=== PATIENT | female | born 1945 | race Caucasian/White ===

== ENCOUNTER 2020-01-18 09:51 | Inpatient (IN) ==
[2020-01-18 10:06] VITALS: BMI 22.8
--- NOTE | 2020-01-18 10:36 | ED.ABDFE ---
HPI Time Seen Time Seen by Provider: 01/18/20 10:34 PCP Primary Care Physician: IVA PAZ HPI Comment HPI Comment: PATIENT IS 74YR OLD FEMALE IN ER WITH ABDOMINAL PAIN. PATIENT SAID YESTERDAY FOR 2 HOURS SHE EXPERIENCE UPPER ABDOMINAL PAIN. AGAIN PAIN STARTED IN LOWER ABDOMEN LAST NIGHT. PAIN HAVE CONTINUE TO GET WORSE SINCE. PAIN IS SHARP 9/10 ASSOCIATED WITH NAUSEA. VOMITED TIMES ONE THIS AM. PAIN RADIATES TO THE BACK. LYING STILL HELP PAIN AND MOVEMENT MAKES PAIN WORSE. HAVE TAKEN TYLENOL 500MG AND COLASE. DENIES PREVIOUS SIMILAR PAIN. DENIES CONTACT WITH COVID 19 PATIENT. NO FEVER OR DYSURIA. LAST BM YESTERDAY. DID Complaint Doctors Chief Complaint Comments: ABDOMINAL PAIN TIMES ONE DAY. Chief Complaint:: PATIENT STATES SHE STARTED HAVING MAJOR PAIN IN THE UPPER MID ABDOMEN YESTERDAY AROUND 5PM. PT STATES THE PAIN LAST ABOUT 2 HOURS. PATIENT STATES THAT LAST NIGHT SHE STARTED HURTING IN THE LOWER PART OF HER ABDOMEN. PATIENT STATES SHE FEELS LIKE SHE NEEDS TO HAVE A BM BUT IS UNABLE TO. STATES SHE HAS NO GAS. PATIENT STATES HER LAST BM WAS EARLY YESTERDAY AND IT WAS A SMALL AMOUNT AND LOOSER THAN NORMAL. PATIENT STATES SHE HAS VOMITED X1 THIS AM. Self Treatment fo Chief Complaint: TYLENOL 500MG X1 COLACE THIS AM COVID-19 Coronavirus risk:travel/contact w/high risk person: No Has patient experienced Coronavirus symptoms: No Reviewed Nurses Notes Review: Yes Source History Provided: Patient Mode of arrival Mode of Arrival: Ambulatory Timing Onset of Chief Complaint: 01/17/20 Duration Since Onset: Constant Duration: Hours Severity Severity: Moderate PMH PMH Past Medical History: Yes Past Medical History: Dyslipidemia, Hypertension and Hypothyroidism Past Surgical History: Yes Surgical History: Hysterectomy Past Surgical History Comment: SKIN CA REMOVED Family History History of Family Medical Conditions: Yes Family Medical History: Cancer, Coronary Artery Disease and Sudden Cardiac Social History Does patient currently use any type of tobacco product: No Have you used tobacco products in the last 12 months: No Type of Tobacco Use: None Does any household member use tobacco: No Alcohol Use: None Do you use any recreational Drugs:: No Lives With: Spouse Lives Where: Home Travel Risk Coronavirus risk:travel/contact w/high risk person: No Has patient experienced Coronavirus symptoms: No Infectious screening Have you traveled outside the country in the last 6 months?: No Isolation: Standard ROS Review of Systems Constitutional: See HPI, Weakness and Fatigue; negative Fever Eyes: No Symptoms Reported and See HPI ENTM: No Symptoms Reported and See HPI; negative Nose Discharge and Nose Congestion Respiratoy: No Symptoms Reported and See HPI; negative Moist Cough, Short of Br eath and Wheezing Cardiovascular: No Symptoms Reported and See HPI; negative Chest Pain Gastrointestinal/Abdominal: See HPI, Abdominal Pain, Nausea and Vomiting; negative Constipation and Diarrhea Genitourinary: No Symptoms Reported and See HPI; negative Discharge, Dysuria, Frequency and Hematuria Neurological: See HPI and Weakness; negative Headache and Dizziness Musculoskeletal: No Symptoms Reported and See HPI; negative Back Pain Integumentary: No Symptoms Reported and See HPI; negative Change in Color, Rash and Juandice Hematologic/Lymphatic: No Symptoms Reported and See HPI; negative Easy Bruising and Swollen Glands Endocrine: No Symptoms Reported and See HPI; negative Increased Thirst and Increased Urine Psychiatric: No Symptoms Reported and See HPI All Other Systems: Reviewed and Negative PE Vital Signs Vitals: Temperature 98.6 F Pulse Rate [Left Brachial] 92 Pulse Rate 74 Respiratory Rate 17 Blood Pressure [Left Arm] 150/67 Blood Pressure 116/58 O2 Sat by Pulse Oximetry 95 General Limitations: No Limitations and Language Barrier General Appearance: Alert and In No Apparent Distress Head Head Exam: Normal Inspection Eyes Eye exam: Normal Appearance and PERRL; negative Scleral Icterus and Conjunctival Injection ENT ENT Exam: Normal Exam, Normal Oropharynx, Normal External Ear Exam and TM's Normal Bilaterally Neck Neck Exam: Normal Inspection and Trachea Midline; negative Tenderness and Lymphadenopathy Chest Chest Inspection: Normal Inspection and Symmetric Chest Wall Rise; negative Tenderness Respiratory Respiratory Exam: Normal Lung Sounds Bilat; negative Accessory Muscle Use, Chest Wall Tenderness and Respiratory Distress Respiratory Exam: Bilateral: Clear to Auscultation Cardiovascular Cardiovascular Exam: Regular Rate, Normal Rhythm and Normal Heart Sounds; negative Systolic Murmur and Diastolic Murmur Abdominal Exam Abdominal Exam: Normal Bowel Sounds, Soft, Distention and Tenderness Abdominal Tenderness: Diffuse and Moderate Rectal Rectal Exam: Deferred Back Back Exam: Normal Inspection; negative (R) CVA Tenderness and (L) CVA Tenderness Extremeties Extremities Exam: Normal Inspection and Normal Capillary Refill; negative Tenderness, Edema and Calf Tenderness External Exam: Female: Deferred : Speculum Exam (Female): Deferred : Bimanual Exam (female): Deferred Neurologic Neurological Exam: Alert, Oriented X3 and CN II-XII Intact; negative Motor Sensory Deficit Psychiatric Psychiatric Exam: Normal Affect and Normal Mood Skin Skin Exam: Warm, Dry, Intact and Normal Color MDM Differential Diagnosis Differential Diagnosis- Considerations may include:: Bowel Obstruction, Cholcystitis, Cholelethiasis, Constipation, Diverticular disease, Gastritus/PUD, Inflammatory BD, Ischemic Bowel, Pancreatitis, Urinary tract infection and Urolithiasis COURSE Treatment Treatment: SEE ORDERS. PEPCID 20MG IVPB AND ZOFRAN 4MG IV. Consultation Consultation Comments: DISCUSSED PATIENT WITH DR. COPE. HE WILL ADMIT PATIENT. Education/Counseling Education/Counseling: Patient Educated On: Diagnosis and Needs for Follow Up ROR Labs Reviewed Laboratory Results Reviewed?: Yes Result Diagrams: 01/20/20 04:05 01/20/20 04:05 Laboratory: WBC 9.9 X10^3/uL (3.6-10.0) 01/18/20 10:55 RBC 4.32 X10^6/uL (3.5-5.4) 01/18/20 10:55 Hgb 13.7 g/dL (12.0-16.0) 01/18/20 10:55 Hct 40.1 % (36.0-47.0) 01/18/20 10:55 MCV 92.9 fL (80.0-100.0) 01/18/20 10:55 MCH 31.8 pg (27.0-34.0) 01/18/20 10:55 MCHC 34.2 g/dL (33.0-35.0) 01/18/20 10:55 RDW 13.9 % (11.6-16.5) 01/18/20 10:55 Plt Count 266 X10^3/uL (150.0-450.0) 01/18/20 10:55 MPV 7.4 fL (7.4-11.0) 01/18/20 10:55 Neut % (Auto) 82.1 % (42.0-75.0) H 01/18/20 10:55 Lymph % (Auto) 12.1 % (21.0-51.0) L 01/18/20 10:55 Pratt % (Auto) 5.1 % (0.0-13.0) 01/18/20 10:55 Eos % (Auto) 0.1 % (0.9-2.9) L 01/18/20 10:55 Baso % (Auto) 0.6 % (0.2-1.0) 01/18/20 10:55 Neut # (Auto) 8.1 x10^3/uL (2.2-4.8) H 01/18/20 10:55 Lymph # (Auto) 1.2 X10^3/uL (1.3-2.9) L 01/18/20 10:55 Pratt # (Auto) 0.5 x10^3/uL (0.3-0.8) 01/18/20 10:55 Eos # (Auto) 0.0 x10^3/uL (0.0-0.2) 01/18/20 10:55 Baso # (Auto) 0.1 X10^3/uL (0.0-0.1) 01/18/20 10:55 Absolute Nucleated RBC 0.0 /100WBC 01/18/20 10:55 Sodium 137 mmol/L (136-145) 01/18/20 10:55 Corrected Sodium 138 mmol/L (136-145) 01/18/20 10:55 Potassium 3.6 mmol/L (3.5-5.1) 01/18/20 10:55 Chloride 101 mmol/L (98-107) 01/18/20 10:55 Carbon Dioxide 26.7 mmol/L (21-32) 01/18/20 10:55 BUN 9 mg/dL (7-18) 01/18/20 10:55 Creatinine 0.90 mg/dL (0.55-1.02) 01/18/20 10:55 Est GFR (MDRD) Af Amer > 60 (>60) 01/18/20 10:55 Est GFR (MDRD) Non-Af > 60 (>60) 01/18/20 10:55 Glucose 134 mg/dL (65-99) H 01/18/20 10:55 Calcium 9.0 mg/dL (8.5-10.1) 01/18/20 10:55 Corrected Calcium TNP 01/18/20 10:55 Total Bilirubin 1.00 mg/dL (0.2-1.0) 01/18/20 10:55 AST 65 Units/L (15-37) H 01/18/20 10:55 ALT 41 Units/L (12-78) 01/18/20 10:55 Alkaline Phosphatase 94 Units/L (46-116) 01/18/20 10:55 Total Protein 7.8 g/dL (6.4-8.2) 01/18/20 10:55 Albumin 3.8 g/dL (3.4-5.0) 01/18/20 10:55 Globulin 4.0 g/dL (2.5-4.5) 01/18/20 10:55 Albumin/Globulin Ratio 1.0 Ratio (1.1-2.1) L 01/18/20 10:55 Amylase 733 Units/L (25-115) H 01/18/20 10:55 Lipase 8793 Units/L (73-393) H 01/18/20 10:55 Specimen Type Clean catch urine 01/18/20 11:48 Urine Color Yellow (YELLOW) 01/18/20 11:48 Urine Appearance Clear (CLEAR) 01/18/20 11:48 Urine pH 6.0 (5.0 - 8.0) 01/18/20 11:48 Ur Specific [place] 1.010 (1.000-1.030) 01/18/20 11:48 Urine Protein Negative (NEGATIVE) 01/18/20 11:48 Urine Glucose (UA) Negative (NEGATIVE) 01/18/20 11:48 Urine Ketones Negative (NEGATIVE) 01/18/20 11:48 Urine Occult Blood 1+ (NEGATIVE) 01/18/20 11:48 Urine Nitrite Negative (NEGATIVE) 01/18/20 11:48 Urine Bilirubin Negative (NEGATIVE) 01/18/20 11:48 Urine Urobilinogen Normal (NORMAL) 01/18/20 11:48 Ur Leukocyte Esterase Negative (NEGATIVE) 01/18/20 11:48 Urine RBC 0-2 /HPF (0-3) 01/18/20 11:48 Urine WBC 0-2 /HPF (0-5) 01/18/20 11:48 Ur Squamous Epith Cells Few /HPF (NEGATIVE) 01/18/20 11:48 Urine Bacteria Negative /HPF (NEGATIVE) 01/18/20 11:48 Ur Culture Indicated? No/not indicated 01/18/20 11:48 XRAY XRAY Interpreted by: Radiologist (DISCUSSED PATIENT WITH DR. COPE. HE WILL ADMIT PATIENT.) Opioid Opioid Risk Tool Age (Nick box if 16-45): No Total: 0 Total Score Risk Category: Low Risk Copyright: Ángel MAZARIEGOS predicting aberrant behaviors Diagnosis Discharge Problem: Acute pancreatitis Qualifiers: Pancreatitis type: unspecified pancreatitis type Acute pancreatitis complication: unspecified Qualified Code(s): K85.90 - Acute pancreatitis without necrosis or infection, unspecified Abdominal pain Qualifiers: Abdominal location: upper abdomen, unspecified Qualified Code(s): R10.10 - Upper abdominal pain, unspecified Instructions Instructions: Acute Pancreatitis, [id number] Dumping Syndrome Diet Laparoscopic Cholecystectomy, Care After, [id number] Gallbladder Eating Plan Dumping Syndrome Forms: Precautions for COVID19 Patient Portal Social Distancing
[2020-01-18] MEDS ORDERED: PEPCID 20 MG IV PREMIX* 20 MG/50 ML BAG IV ONE ×2 (10:43→10:49)
[2020-01-18] MEDS ORDERED: ZOFRAN INJ 4 MG VIAL IVP ONE (10:43)
[2020-01-18] MEDS ORDERED: ZOFRAN INJ 4 MG VIAL ONE (10:49)
[2020-01-18 11:09] LABS: BASOPHILS # (AUTO) 0.1 X10^3/uL (0.0-0.1); BASOPHILS % (AUTO) 0.6 % (0.2-1.0); EOSINOPHILS % (AUTO) 0.1 % (0.9-2.9); HEMATOCRIT 40.1 % (36.0-47.0); HEMOGLOBIN 13.7 g/dL (12.0-16.0); LYMPHOCYTES # (AUTO) 1.2 X10^3/uL (1.3-2.9); LYMPHOCYTES % (AUTO) 12.1 % (21.0-51.0); MEAN CORPUSCULAR HEMOGLOBIN 31.8 pg (27.0-34.0); MEAN CORPUSCULAR HGB CONC 34.2 g/dL (33.0-35.0); MEAN CORPUSCULAR VOLUME 92.9 fL (80.0-100.0); MEAN PLATELET VOLUME 7.4 fL (7.4-11.0); MONOCYTES # (AUTO) 0.5 x10^3/uL (0.3-0.8); MONOCYTES % (AUTO) 5.1 % (0.0-13.0); NEUTROPHILS # (AUTO) 8.1 x10^3/uL (2.2-4.8); NEUTROPHILS % (AUTO) 82.1 % (42.0-75.0); PLATELET COUNT 266 X10^3/uL (150.0-450.0); RED BLOOD COUNT 4.32 X10^6/uL (3.5-5.4); RED CELL DISTRIBUTION WIDTH 13.9 % (11.6-16.5); WHITE BLOOD COUNT 9.9 X10^3/uL (3.6-10.0)
[2020-01-18 11:23] LABS: ALANINE AMINOTRANSFERASE 41 Units/L (12-78); ALBUMIN 3.8 g/dL (3.4-5.0); ALKALINE PHOSPHATASE 94 Units/L (46-116); ASPARTATE AMINO TRANSFERASE 65 Units/L (15-37); BLOOD UREA NITROGEN 9 mg/dL (7-18); CARBON DIOXIDE 26.7 mmol/L (21-32); CHLORIDE 101 mmol/L (98-107); COR NA(FOR HYPERGLY) 138 mmol/L (136-145); SODIUM 137 mmol/L (136-145); TOTAL PROTEIN 7.8 g/dL (6.4-8.2); eGFR NON BLACK RACES > 60 (>60)
[2020-01-18 11:27] LABS: AMYLASE 733 Units/L (25-115)
[2020-01-18 11:46] LABS: LIPASE 8793 Units/L (73-393)
[2020-01-18 11:57] LABS: BILIRUBIN,URINE NEGATIVE (NEGATIVE); BLOOD/HEMOGLOBIN,URINE 1+ (NEGATIVE); GLUCOSE, URINE NEGATIVE (NEGATIVE); KETONES,URINE NEGATIVE (NEGATIVE); LEUKOCYTE ESTERASE ,URINE NEGATIVE (NEGATIVE); NITRITES,URINE NEGATIVE (NEGATIVE); PROTEIN,URINE NEGATIVE (NEGATIVE); UROBILINOGEN,URINE NORMAL (NORMAL)
[2020-01-18 12:08] LABS: APPEARANCE,URINE CLEAR (CLEAR); COLOR,URINE YELLOW (YELLOW)
[2020-01-18 12:09] LABS: BACTERIA,URINE NEGATIVE /HPF (NEGATIVE); RBC,URINE 0-2 /HPF (0-3); SQUAMOUS EPITHELIAL CELL,UR FEW /HPF (NEGATIVE)
--- NOTE | 2020-01-18 14:12 | CT ---
HISTORYAbdominal painSTUDYABDOMEN/PELVIS WITH CONTechnique: Axial post-contrast images with coronal and sagittal reformats. Dose reduction procedures were used with mA/kv adjusted for body size.COMPARISONNoneFINDINGSThe lung bases are clear. The liver, spleen, adrenal glands are within normal limits. The pancreas is normal in size and configuration however there is a question of some peripancreatic fat stranding suggestive of inflammation which may indicate developing pancreatitis. Chemical correlation is recommended. Additionally there is some transmural thickening in the descending and transverse duodenum which may indicate some duodenitis which could be primary to the duodenum or related to an adjacent pancreatitis. There is no evidence for pseudocyst or abscess. There is a duodenal diverticulum incidentally noted. The kidneys are unobstructed and without stones or masses. No ureteral calculi are identified. Calcific atherosclerotic change is present in a nondilated abdominal aorta. No intraperitoneal or retroperitoneal lymphadenopathy of significance is identified. The appendix is not identified with absolute certainty. Patient may be status post appendectomy. In any case there are no secondary signs of appendicitis. There are no findings suggestive of enteritis, diverticulitis, or colitis. Examination of the pelvis demonstrated no evidence for pelvic masses, pelvic fluid, or pelvic lymphadenopathy. No definite bladder abnormality is identified. No lytic or blastic skeletal lesions of significance are identified. There is minimal anterolisthesis L5 on S1 secondary to bilateral spondylolysis at L5.IMPRESSIONMild peripancreatic inflammatory change which could be due to developing acute pancreatitis. Chemical correlation is recommended.Mild Priya duodenal inflammatory change with some transmural thickening in the distal descending and transverse duodenum which could represent a primary duodenitis or could be related to adjacent pancreatitis.Bilateral spondylolysis at L5 with minimal anterolisthesis L5 on [id number] signed by: BERE RINALDI (January 18, 2020 14:11:03)
[2020-01-18] MEDS ORDERED: MORPHINE SULFATE INJ 2 MG INJ IVP PRN (15:58)
[2020-01-18] MEDS ORDERED: ZOFRAN INJ 4 MG VIAL IVP PRN (15:58)
[2020-01-18] MEDS ORDERED: PEPCID 20 MG IV PREMIX* 20 MG/50 ML BAG IV PRN (15:58)
[2020-01-18] MEDS: NS 1000 ML 1,000 ML IV SCH (16:44)
[2020-01-18] MEDS: TYLENOL 325 MG TAB PO PRN (17:43)
[2020-01-18] MEDS ORDERED: NORVASC TAB 2.5 MG ONE (19:29)
[2020-01-18] MEDS: COZAAR PO SCH (20:27)
[2020-01-18] MEDS: NORVASC TAB 2.5 MG PO SCH (20:28)
[2020-01-19] MEDS: NS 1000 ML 1,000 ML IV SCH (03:15)
[2020-01-19 05:33] LABS: BASOPHILS % (AUTO) 0.3 % (0.2-1.0); EOSINOPHILS # (AUTO) 0.1 x10^3/uL (0.0-0.2); EOSINOPHILS % (AUTO) 0.5 % (0.9-2.9); HEMATOCRIT 36.9 % (36.0-47.0); HEMOGLOBIN 12.8 g/dL (12.0-16.0); LYMPHOCYTES # (AUTO) 1.7 X10^3/uL (1.3-2.9); LYMPHOCYTES % (AUTO) 16.8 % (21.0-51.0); MEAN CORPUSCULAR HEMOGLOBIN 32.5 pg (27.0-34.0); MEAN CORPUSCULAR HGB CONC 34.6 g/dL (33.0-35.0); MEAN CORPUSCULAR VOLUME 93.8 fL (80.0-100.0); MEAN PLATELET VOLUME 7.7 fL (7.4-11.0); MONOCYTES # (AUTO) 0.8 x10^3/uL (0.3-0.8); MONOCYTES % (AUTO) 7.4 % (0.0-13.0); NEUTROPHILS # (AUTO) 7.7 x10^3/uL (2.2-4.8); PLATELET COUNT 239 X10^3/uL (150.0-450.0); RED BLOOD COUNT 3.93 X10^6/uL (3.5-5.4); RED CELL DISTRIBUTION WIDTH 14.2 % (11.6-16.5); WHITE BLOOD COUNT 10.2 X10^3/uL (3.6-10.0)
[2020-01-19 05:44] LABS: ALANINE AMINOTRANSFERASE 30 Units/L (12-78); ALBUMIN 3.2 g/dL (3.4-5.0); ALKALINE PHOSPHATASE 79 Units/L (46-116); AMYLASE 233 Units/L (25-115); ASPARTATE AMINO TRANSFERASE 31 Units/L (15-37); BLOOD UREA NITROGEN 6 mg/dL (7-18); CALCIUM 8.4 mg/dL (8.5-10.1); CARBON DIOXIDE 26.5 mmol/L (21-32); CHLORIDE 103 mmol/L (98-107); LIPASE 1438 Units/L (73-393); SODIUM 137 mmol/L (136-145); TOTAL PROTEIN 6.8 g/dL (6.4-8.2); eGFR NON BLACK RACES > 60 (>60)
[2020-01-19] MEDS ORDERED: POTASSIUM CHL 40 MEQ/NS 0.45% 500 ML IV PRN (05:48)
[2020-01-19] MEDS ORDERED: MAGNESIUM SULFATE 1 GRAM/100 mL PREMIX 1 GM/100 ML BAG IV PRN (05:48)
[2020-01-19] MEDS ORDERED: MICRO K EXTEN CAP 10 MEQ PO PRN (05:48)
[2020-01-19] MEDS ORDERED: KLOR-CON PO PRN (05:48)
[2020-01-19] MEDS ORDERED: K-RIDER 10 MEQ/NS 100 ML 10 MEQ/100 ML BAG IV PRN (05:48)
[2020-01-19] MEDS ORDERED: POTASSIUM CHLORIDE LIQ 20 MEQ UDC PO PRN (05:48)
[2020-01-19] MEDS ORDERED: K-DUR TAB 20 MEQ PO PRN (05:48)
[2020-01-19] MEDS ORDERED: POTASSIUM CHL 60 MEQ/NS 0.45% 500 ML IV PRN (05:48)
--- NOTE | 2020-01-19 09:05 | DR.H&P ---
H&P - History & Physical for Day of: H&P Date: 01/18/20 - Chief Complaint Chief Complaint: ABDOMINAL PAIN - History of Present Illness History of Present Illness: IS A 74 YEAR OLD PATIENT OF IVA MOCTEZUMA. SHE PRESENTED TO THE ER WITH COMPLAINTS OF SEVERE PAIN TO THE UPPER, MID ABDOMEN ONE DAY PRIOR TO ARRIVAL. PATIENT DESCRIBES PAIN INTERMITTENT AND REPORTS THAT IT LASTS FOR APPROXIMATELY TWO HOURS AT A TIME. SHE RATED PAIN 7/10 ON ARRIVAL TO THE ER. ASSOCIATED SYMPTOMS INCLUDE LOOSE BOWEL MOVEMENTS, FEVER, NAUSEA, AND VOMITING. PATIENT HAS VOMITED ONE TIME IN THE LAST 24 HOURS. SHE HAS TAKEN TYLENOL 500MG PO X 1 THIS MORNING WITHOUT IMPROVEMENT IN SYMPTOMS. PMH INCLUDES DYSLIPIDEMIA, HTN, HYPOTHYROIDISM, HYSTERECTOMY, AND SKIN CANCER REMOVED. ON ARRIVAL TO THE ER, VITALS WERE: 98.6-74-16-95%-116/58. LABS WERE OBT AINED. ABNORMAL LAB VALUES INCLUDE THE FOLLOWING: GLUCOSE 134, AST 65, AMYLASE 733, LIPASE 8793. URINALYSIS REVEALED: WBC 0-2, RBC 0-2, OCCULT BLOOD 1+, BACTERIA NEGATIVE, LEUKOCYTES NEGATIVE. BLOOD CULTURES WERE SET UP. AN ABDOMEN/PELVIS CT WITH CONTRAST WAS OBTAINED AND REVEALED: Mild peripancreatic inflammatory change which could be due to developing acute pancreatitis. Chemical correlation is recommended. Mild Priya duodenal inflammatory change with some transmural thickening in the distal descending and transverse duodenum which could represent a primary duodenitis or could be related to adjacent pancreatitis. 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 SHE WAS GIVEN ZOFRAN 4MG IV X 1 DOSE AND PEPCID 20MG IV X 1 DOSE IN THE ER. SHE REPORTED ONLY SLIGHT IMPROVEMENT IN SYMPTOMS. SHE WAS ADMITTED TO THE HOSPITAL FOR FURTHER EVALUATION AND TREATMENT OF ACUTE PANCREATITIS. SHE WAS STARTED ON NORMAL SALINE WITH 20MEQ KCL AT 100ML/HR, THE POTASSIUM AND MAGNESIUM PROTOCOL, MORPHINE 2MG IV Q4H PRN PAIN, ZOFRAN 4MG IV Q6H PRN NAUSEA, PEPCID 20MG IV BID, AND HER HOME MEDICATIONS WERE RESUMED. WE WILL HOLD HER NPO OTHER THAN HER PO MEDICATIONS. OTHERWISE, WE PLAN TO FOLLOW UP WITH AM LABS AND CONTINUE TO MONITOR. - Past Medical History Past Medical History: Hypertension, Dyslipidemia, Hypothyroidism - Past Surgical History Surgical History: Hysterectomy - Family History Family Medical History: Cancer, [place] - Social History Does patient currently use any type of tobacco product: No Have you used tobacco products in the last 12 months: No Type of Tobacco Use: None Does any household member use tobacco: No Alcohol Use: None Drug Use: None - Medications Home Medications: codeine Adverse Reaction (Verified 09/29/18 12:22) meperidine [From Demerol] Adverse Reaction (Verified 09/29/18 12:21) CONTINUE taking the following medications amlodipine 2.5 mg PO QHS 01/18/20 [History] levothyroxine 75 mcg PO QAM 01/18/20 [History] losartan 25 mg PO QHS 01/18/20 [History] meloxicam 15 mg PO DAILY PRN 01/18/20 [History] pravastatin 20 mg PO QHS 01/18/20 [History] - Review of Systems Constitutional: Fever Eyes: No Symptoms Reported ENT: No Symptoms Reported Respiratory: No Symptoms Reported Cardiovascular: No Symptoms Reported Gastrointestinal: See HPI, Nausea, Vomiting, Abdominal Pain Genitourinary: No Symptoms Reported Musculoskeletal: No Symptoms Reported Neurological: Weakness - Physical Exam Vital Signs: Temperature 99.4 F Pulse Rate [Left Brachial] 77 Pulse Rate 74 Respiratory Rate 18 Blood Pressure [Left Arm] 116/59 Blood Pressure 116/58 O2 Sat by Pulse Oximetry 98 Oriented: Normal Eyes: Normal Ear: Normal Nose: Normal Respiratory: Diminished Throughout Cardiovascular: Normal. negative: S3, S4, Murmur : Normal Auscultation: Bowel Sounds: Normal Palpation: Normal Tenderness: Diffuse, Epigastric, Severe. negative: Rebound, Guarding, Rigidity Skin: Normal Musculoskeletal: Normal Psychiatric: Normal Mood Description: Calm Affect: Normal Speech Pattern: Clear - Assessment/Plan (1) Acute pancreatitis Qualifiers: Pancreatitis type: unspecified pancreatitis type Acute pancreatitis complication: unspecified Qualified Code(s): K85.90 - Acute pancreatitis without necrosis or infection, unspecified Status: Acute Plan: ADMIT, NORMAL SALINE WITH 20MEQ KCL AT 100ML/HR, THE POTASSIUM AND MAGNESIUM PROTOCOL, MORPHINE 2MG IV Q4H PRN PAIN, ZOFRAN 4MG IV Q6H PRN NAUSEA, PEPCID 20MG IV BID, AND HER HOME MEDICATIONS WERE RESUMED. NPO OTHER THAN MEDICATIONS - Allergies Allergies/Adverse Reactions: Allergies Allergy/AdvReac Type Severity Reaction Status Date / Time codeine AdvReac Verified 09/29/18 12:22 meperidine [From Demerol] AdvReac Verified 09/29/18 12:21
[2020-01-19] MEDS ORDERED: NS + KCL 20 MEQ/L 1,000 ML IV ONE (09:09)
[2020-01-19] MEDS: NS + KCL 20 MEQ/L 1,000 ML IV SCH (09:11)
[2020-01-19] MEDS: K-DUR TAB 20 MEQ PO SCH (09:11)
[2020-01-19 10:19] LABS: CHOL/HDL RATIO 2.3 (0.0-5.0)
[2020-01-19] MEDS: PEPCID 20 MG IV PREMIX* 20 MG/50 ML BAG IV SCH ×2 (10:36→21:51)
--- NOTE | 2020-01-19 10:58 | RAD ---
HISTORYSURGICAL CLEANRANCE.brRUQ PAINSTUDYCHEST, 1 VIEWCOMPARISONNoneFINDINGSThe trachea is midline. The cardiac silhouette is unremarkable . The lungs are clear without focal infiltrate or effusion. The bony thorax is unremarkable.IMPRESSIONNo acute cardiopulmonary disease.Electronically signed by: JOSE A BLACKBURN (January 19, 2020 10:56:27)
--- NOTE | 2020-01-19 11:04 | US ---
HISTORYSEVERE ABD PAIN, PANCREATITISSTUDYGALL BLADDERCOMPARISONCT abdomen and pelvis January 18, 2020.TECHNIQUEMultiple schafer scale and color flow Doppler images of the right upper quadrant were obtained.FINDINGSThe liver is normal in echotexture and size . No focal intraparenchymal mass or intrahepatic biliary ductal dilatation can be observed. the common bile duct is unremarkable measuring 6.2 mm.. The gallbladder demonstrates a markedly thickened wall at 8.5 mm. Stones and echogenic material are seen within the gallbladder lumen. There is no pericystic fluid. The patient is tender over gallbladder i.e. positive Castillo sign. Stones marked wall thickening and positive Castillo sign are all findings consistent with acute cholecystitis.. There is normal flow in the main portal vein. Hepatic venous flow is also normal. The aorta tapers normally without aneurysm. The IVC also shows normal flow.The right kidney appears normal in size without focal parenchymal mass or nephrolithiasis. The right kidney measurers 10.7 cm in length by 5 cm AP x 4.5 cm transverse. Cortical thickness is 1.4 cm. There is normal vascular flow to the right kidney. There is no hydronephrosis solid or cystic mass or stone disease.. No hydronephrosis or perirenal fluid can be observed. The pancreatic head and body are unremarkable. The pancreatic tail is largely obscured by overlying bowel gas.IMPRESSIONGallstones marked wall thickening at 8.5 mm. Positive Castillo sign. These are all findings of acute cholecystitis. The liver and biliary ducts are normal. The right kidney aorta IVC and visualized portions of the pancreas are also normal.Electronically signed by: JOSE A BLACKBURN (January 19, 2020 11:03:19)
[2020-01-19] MEDS ORDERED: FENTANYL INJ 100 mcg ONE (13:33)
[2020-01-19] MEDS ORDERED: NS 1000 ML 1,000 ML ONE (13:33)
[2020-01-19] MEDS ORDERED: DECADRON INJ ONE ×2 (13:34→13:42)
[2020-01-19] MEDS ORDERED: MORPHINE SULFATE INJ 2 MG INJ ONE (13:34)
[2020-01-19] MEDS ORDERED: TORADOL 30 MG VIAL ONE (13:42)
[2020-01-19] MEDS ORDERED: ULTANE GAS IN ONE (13:42)
[2020-01-19] MEDS ORDERED: NORCURON INJ 10 MG VIAL ONE (13:42)
[2020-01-19] MEDS ORDERED: XYLOCAINE 1 % (PLAIN) ONE (13:42)
[2020-01-19] MEDS ORDERED: ROBINUL ONE (13:42)
[2020-01-19] MEDS ORDERED: ZOFRAN INJ 4 MG VIAL ONE (13:42)
[2020-01-19] MEDS ORDERED: DIPRIVAN VIAL ONE (13:42)
[2020-01-19] MEDS ORDERED: QUELICIN (OR ANECTINE) ONE (13:42)
[2020-01-19] MEDS ORDERED: NEOSTIGMINE INJ ONE (13:42)
[2020-01-19] MEDS ORDERED: VERSED ONE (13:42)
[2020-01-19] MEDS ORDERED: LR 1000 ML IV 1,000 ML IV ONE (14:39)
[2020-01-19] MEDS ORDERED: ANCEF 1 GRAM IV PREMIX* 1 G/50 ML BAG IV ONE (14:40)
[2020-01-19] MEDS ORDERED: BACTROBAN TOPICAL OINT ONE (15:46)
[2020-01-19] MEDS ORDERED: REGLAN INJ 10 MG VIAL IVP PRN (16:00)
[2020-01-19] MEDS ORDERED: BENADRYL INJ 50 MG VIAL IVP PRN (16:00)
[2020-01-19] MEDS ORDERED: ZOFRAN INJ 4 MG VIAL IVP PRN (16:00)
[2020-01-19] MEDS ORDERED: PHENERGAN INJ 25 MG IM PRN (16:00)
[2020-01-19] MEDS ORDERED: DILAUDID INJ IVP PRN (16:08)
[2020-01-19] MEDS ORDERED: SYNTHROID 75 mcg TAB PO SCH (16:30)
[2020-01-19] MEDS ORDERED: NORVASC TAB 2.5 MG ONE (20:25)
[2020-01-19] MEDS: COZAAR PO SCH (21:55)
[2020-01-19] MEDS: NORVASC TAB 2.5 MG PO SCH (21:56)
[2020-01-20 05:21] LABS: BASOPHILS % (AUTO) 0.1 % (0.2-1.0); HEMATOCRIT 34.9 % (36.0-47.0); HEMOGLOBIN 11.7 g/dL (12.0-16.0); LYMPHOCYTES % (AUTO) 10.6 % (21.0-51.0); MEAN CORPUSCULAR HEMOGLOBIN 31.7 pg (27.0-34.0); MEAN CORPUSCULAR HGB CONC 33.4 g/dL (33.0-35.0); MEAN CORPUSCULAR VOLUME 94.9 fL (80.0-100.0); MONOCYTES # (AUTO) 0.2 x10^3/uL (0.3-0.8); MONOCYTES % (AUTO) 2.2 % (0.0-13.0); NEUTROPHILS # (AUTO) 8.4 x10^3/uL (2.2-4.8); NEUTROPHILS % (AUTO) 87.1 % (42.0-75.0); PLATELET COUNT 227 X10^3/uL (150.0-450.0); RED BLOOD COUNT 3.68 X10^6/uL (3.5-5.4); RED CELL DISTRIBUTION WIDTH 14.1 % (11.6-16.5); WHITE BLOOD COUNT 9.7 X10^3/uL (3.6-10.0)
[2020-01-20 05:31] LABS: ALANINE AMINOTRANSFERASE 24 Units/L (12-78); ALBUMIN 2.6 g/dL (3.4-5.0); ALKALINE PHOSPHATASE 73 Units/L (46-116); AMYLASE 60 Units/L (25-115); ASPARTATE AMINO TRANSFERASE 26 Units/L (15-37); BLOOD UREA NITROGEN 15 mg/dL (7-18); CALCIUM 8.8 mg/dL (8.5-10.1); CARBON DIOXIDE 22.2 mmol/L (21-32); CHLORIDE 104 mmol/L (98-107); COR CA(FOR HYPOALB) 9.9 mg/dL (8.5-10.1); LIPASE 219 Units/L (73-393); SODIUM 138 mmol/L (136-145); TOTAL PROTEIN 6.4 g/dL (6.4-8.2); eGFR NON BLACK RACES > 60 (>60)
[2020-01-20] MEDS: SYNTHROID 75 mcg TAB PO SCH (05:40)
[2020-01-20] MEDS ORDERED: SYNTHROID 75 mcg TAB PO SCH (06:30)
[2020-01-20] MEDS: K-DUR TAB 20 MEQ PO SCH (09:30)
[2020-01-20] MEDS: PEPCID 20 MG IV PREMIX* 20 MG/50 ML BAG IV SCH ×2 (09:30→20:58)
--- NOTE | 2020-01-20 11:21 | DR.PROGNOT ---
Hospital Progress Notes - Progress Note for Day of: Progress Note Date: 01/20/20 - Chief Complaint Chief Complaint: s/p Lap Elo for acute calculus cholecystitis and gallstone pancreatitis . no abdominal pain , no nausea or vomiting . Amylase , Lipase and LFT are normal . afebrile . - Past Medical Family Social History Past Med/Fam/Surg Hx: No changes since H&P Allergies: Allergies codeine Adverse Reaction (Verified 09/29/18 12:22) meperidine [From Demerol] Adverse Reaction (Verified 09/29/18 12:21) - Review Of Systems ROS: No change since H&P - Vital Signs Vital Signs: Temperature 97.8 F Pulse Rate [Left Brachial] 63 Pulse Rate 64 Respiratory Rate 18 Blood Pressure [Left Arm] 103/50 Blood Pressure 116/58 O2 Sat by Pulse Oximetry 96 - Physical Exam Oriented: Normal Eyes: Normal Ear: Normal Nose: Normal Cardiovascular: Normal. negative: S3, S4, Murmur : Normal GI:Auscultation: Normal GI:Palpation: Normal GI: Tenderness: Normal. negative: Rebound, Guarding, Rigidity Skin: Normal Musculoskeletal: Normal Psychiatric: Normal Mood Description: Calm Affect: Normal Speech Pattern: Clear, Appropriate - Laboratory and Diagnostics Result Diagrams: 01/20/20 04:05 01/20/20 04:05 Labs: 01/18/20 18:20 Blood Blood Culture - Preliminary 01/18/20 17:10 Blood Blood Culture - Preliminary Laboratory WBC 9.7 X10^3/uL (3.6-10.0) 01/20/20 04:05 RBC 3.68 X10^6/uL (3.5-5.4) 01/20/20 04:05 Hgb 11.7 g/dL (12.0-16.0) L 01/20/20 04:05 Hct 34.9 % (36.0-47.0) L 01/20/20 04:05 MCV 94.9 fL (80.0-100.0) 01/20/20 04:05 MCH 31.7 pg (27.0-34.0) 01/20/20 04:05 MCHC 33.4 g/dL (33.0-35.0) 01/20/20 04:05 RDW 14.1 % (11.6-16.5) 01/20/20 04:05 Plt Count 227 X10^3/uL (150.0-450.0) 01/20/20 04:05 MPV 8.0 fL (7.4-11.0) 01/20/20 04:05 Neut % (Auto) 87.1 % (42.0-75.0) H 01/20/20 04:05 Lymph % (Auto) 10.6 % (21.0-51.0) L 01/20/20 04:05 Reynolds % (Auto) 2.2 % (0.0-13.0) 01/20/20 04:05 Eos % (Auto) 0.0 % (0.9-2.9) L 01/20/20 04:05 Baso % (Auto) 0.1 % (0.2-1.0) L 01/20/20 04:05 Neut # (Auto) 8.4 x10^3/uL (2.2-4.8) H 01/20/20 04:05 Lymph # (Auto) 1.0 X10^3/uL (1.3-2.9) L 01/20/20 04:05 Reynolds # (Auto) 0.2 x10^3/uL (0.3-0.8) L 01/20/20 04:05 Eos # (Auto) 0.0 x10^3/uL (0.0-0.2) 01/20/20 04:05 Baso # (Auto) 0.0 X10^3/uL (0.0-0.1) 01/20/20 04:05 Absolute Nucleated RBC 0.0 /100WBC 01/20/20 04:05 PT 14.1 SECONDS (11.8-14.3) 01/19/20 12:45 INR Target Range - 01/19/20 12:45 INR 1.12 (0.8-1.3) 01/19/20 12:45 APTT 33.5 SECONDS (22.9-36.5) 01/19/20 12:45 PTT Comment - 01/19/20 12:45 Sodium 138 mmol/L (136-145) 01/20/20 04:05 Corrected Sodium TNP 01/20/20 04:05 Potassium 4.5 mmol/L (3.5-5.1) 01/20/20 04:05 Chloride 104 mmol/L (98-107) 01/20/20 04:05 Carbon Dioxide 22.2 mmol/L (21-32) 01/20/20 04:05 BUN 15 mg/dL (7-18) 01/20/20 04:05 Creatinine 0.70 mg/dL (0.55-1.02) 01/20/20 04:05 Est GFR (MDRD) Af Amer > 60 (>60) 01/20/20 04:05 Est GFR (MDRD) Non-Af > 60 (>60) 01/20/20 04:05 Glucose 109 mg/dL (65-99) H 01/20/20 04:05 Calcium 8.8 mg/dL (8.5-10.1) 01/20/20 04:05 Corrected Calcium 9.9 mg/dL (8.5-10.1) 01/20/20 04:05 Magnesium 2.1 mg/dL (1.7-2.9) 01/19/20 04:08 Total Bilirubin 0.40 mg/dL (0.2-1.0) 01/20/20 04:05 AST 26 Units/L (15-37) 01/20/20 04:05 ALT 24 Units/L (12-78) 01/20/20 04:05 Alkaline Phosphatase 73 Units/L (46-116) 01/20/20 04:05 Total Protein 6.4 g/dL (6.4-8.2) 01/20/20 04:05 Albumin 2.6 g/dL (3.4-5.0) L 01/20/20 04:05 Globulin 3.8 g/dL (2.5-4.5) 01/20/20 04:05 Albumin/Globulin Ratio 0.7 Ratio (1.1-2.1) L 01/20/20 04:05 Triglycerides 68 mg/dL (0-150) 01/19/20 04:08 Cholesterol 148 mg/dL (0-200) 01/19/20 04:08 LDL Cholesterol, Calc 69 mg/dL (0-100) 01/19/20 04:08 HDL Cholesterol 65 mg/dL (40-60) H 01/19/20 04:08 Cholesterol/HDL Ratio 2.3 (0.0-5.0) 01/19/20 04:08 Amylase 60 Units/L (25-115) 01/20/20 04:05 Lipase 219 Units/L (73-393) 01/20/20 04:05 Specimen Type Clean catch urine 01/18/20 11:48 Urine Color Yellow (YELLOW) 01/18/20 11:48 Urine Appearance Clear (CLEAR) 01/18/20 11:48 Urine pH 6.0 (5.0 - 8.0) 01/18/20 11:48 Ur Specific [place] 1.010 (1.000-1.030) 01/18/20 11:48 Urine Protein Negative (NEGATIVE) 01/18/20 11:48 Urine Glucose (UA) Negative (NEGATIVE) 01/18/20 11:48 Urine Ketones Negative (NEGATIVE) 01/18/20 11:48 Urine Occult Blood 1+ (NEGATIVE) 01/18/20 11:48 Urine Nitrite Negative (NEGATIVE) 01/18/20 11:48 Urine Bilirubin Negative (NEGATIVE) 01/18/20 11:48 Urine Urobilinogen Normal (NORMAL) 01/18/20 11:48 Ur Leukocyte Esterase Negative (NEGATIVE) 01/18/20 11:48 Urine RBC 0-2 /HPF (0-3) 01/18/20 11:48 Urine WBC 0-2 /HPF (0-5) 01/18/20 11:48 Ur Squamous Epith Cells Few /HPF (NEGATIVE) 01/18/20 11:48 Urine Bacteria Negative /HPF (NEGATIVE) 01/18/20 11:48 Ur Culture Indicated? No/not indicated 01/18/20 11:48 SARS-CoV-2 (PCR) Negative (NEGATIVE) 01/19/20 13:10 Tissue Pathology To follow 01/19/20 15:40 - Assessment and Plan 1: subsiding Gallstone pancreatitis . acute calculus cholecystitis . s/p Lap Elo . to advance diet and will follow in 10 days . - Problem Patient Problems: Patient Problems Acute pancreatitis (Acute) K85.90
[2020-01-20] MEDS: NS + KCL 20 MEQ/L 1,000 ML IV SCH ×2 (16:46→22:51)
[2020-01-20] MEDS: NORVASC TAB 2.5 MG PO SCH (20:56)
[2020-01-20] MEDS: COZAAR PO SCH (20:56)
[2020-01-21] MEDS: TYLENOL 325 MG TAB PO PRN (00:54)
[2020-01-21] MEDS: SYNTHROID 75 mcg TAB PO SCH (05:32)
[2020-01-21 06:15] LABS: BASOPHILS # (AUTO) 0.1 X10^3/uL (0.0-0.1); BASOPHILS % (AUTO) 0.5 % (0.2-1.0); EOSINOPHILS % (AUTO) 0.4 % (0.9-2.9); HEMATOCRIT 32.3 % (36.0-47.0); HEMOGLOBIN 11.1 g/dL (12.0-16.0); LYMPHOCYTES # (AUTO) 2.3 X10^3/uL (1.3-2.9); LYMPHOCYTES % (AUTO) 22.9 % (21.0-51.0); MEAN CORPUSCULAR HEMOGLOBIN 31.9 pg (27.0-34.0); MEAN CORPUSCULAR HGB CONC 34.5 g/dL (33.0-35.0); MEAN CORPUSCULAR VOLUME 92.4 fL (80.0-100.0); MEAN PLATELET VOLUME 7.6 fL (7.4-11.0); MONOCYTES # (AUTO) 0.8 x10^3/uL (0.3-0.8); MONOCYTES % (AUTO) 8.1 % (0.0-13.0); NEUTROPHILS # (AUTO) 6.7 x10^3/uL (2.2-4.8); NEUTROPHILS % (AUTO) 68.1 % (42.0-75.0); PLATELET COUNT 226 X10^3/uL (150.0-450.0); RED BLOOD COUNT 3.49 X10^6/uL (3.5-5.4); WHITE BLOOD COUNT 9.8 X10^3/uL (3.6-10.0)
[2020-01-21 06:34] LABS: ALANINE AMINOTRANSFERASE 19 Units/L (12-78); ALBUMIN 2.5 g/dL (3.4-5.0); ALKALINE PHOSPHATASE 63 Units/L (46-116); AMYLASE 62 Units/L (25-115); ASPARTATE AMINO TRANSFERASE 22 Units/L (15-37); BLOOD UREA NITROGEN 14 mg/dL (7-18); CALCIUM 8.1 mg/dL (8.5-10.1); CARBON DIOXIDE 26.6 mmol/L (21-32); CHLORIDE 106 mmol/L (98-107); COR CA(FOR HYPOALB) 9.3 mg/dL (8.5-10.1); CREATININE 0.74 mg/dL (0.55-1.02); LIPASE 371 Units/L (73-393); SODIUM 139 mmol/L (136-145); TOTAL PROTEIN 5.9 g/dL (6.4-8.2); eGFR NON BLACK RACES > 60 (>60)
[2020-01-21] MEDS ORDERED: MYLICON TAB 80 MG CHEW PO PRN (07:48)
[2020-01-21] MEDS: K-DUR TAB 20 MEQ PO SCH (08:52)
[2020-01-21] MEDS: PEPCID 20 MG IV PREMIX* 20 MG/50 ML BAG IV SCH (08:53)
[2020-01-21 10:13] VITALS: BP 153/75
== END 2020-01-21 10:30 | disposition home or self-care (01) | DRG 439 ==
LOC: ER 09:55 → MED/SURG 15:56
PROVIDERS: ADMIT Internal Medicine; ATTEND Internal Medicine
DX: K85.90 Acute pancreatitis without necrosis or infection, unspecified; M47.896 Other spondylosis, lumbar region; E78.2 Mixed hyperlipidemia; R11.2 Nausea with vomiting, unspecified; K80.00 Calculus of gallbladder with acute cholecystitis without obstruction; Z01.818 Encounter for other preprocedural examination; Z11.59 Encounter for screening for other viral diseases; R10.10 Upper abdominal pain, unspecified; E03.8 Other specified hypothyroidism; K66.0 Peritoneal adhesions (postprocedural) (postinfection)
CPT/HCPCS: 36415; 71010; 71045; 74177; 76705; 80053; 80061; 81001; 82150; 83690; 83735; 85025; 85610; 85730; 87040; 87635; 88304; 93005; 96365; 96374; 96375; 99100; 99284; A4222; J0330; J0690; J1100; J1885; J2250; J2270; J2405; J2704; J2710; J3010; J3480; J3490; J7030; J7120; S0028